=== PATIENT | female | born 1975 | race Two or more races ===

== ENCOUNTER 2017-11-05 17:54 | Emergency (ER) | payer SELFPAY ==
--- NOTE | 2017-11-05 21:08 | ED Physician Chart ---
ED Chief Complaint/HPI - Patient Information Date Seen:: 11/05/17 Time Seen:: 20:45 Chief Complaint:: right elbow and right forearm pain History of Present Illness:: At 1700 patient fell down 3 steps. No loss of consciousness. No neck pain. She complains of generalized myalgia and special pain right elbow and right forearm. Patient is right-hand dominant Allergies:: Allergies Allergy/AdvReac Type Severity Reaction Status Date / Time No Known Allergies Allergy Verified 11/05/17 18:06 Vitals:: Vital Signs - 8 hr 11/05/17 18:06 Temp 97.9 F HR 88 RR 19 BP 151/77 O2 Sat % 98 Historian:: Patient Review:: Nurse's Note Reviewed ED Review of Systems - Review of Systems General/Constitutional: No fever, No chills Skin: Skin lesions Head: No headache ENT: No earache Neck: No neck pain Cardio Vascular: No chest pain, No palpitations Pulmonary: No SOB GI: No nausea, No vomiting, No diarrhea G/U: No dysuria Musculoskeletal: No bone or joint pain Endocrine: No polyuria, No polydipsia Psychiatric: No prior psych history Hematopoietic: No bruising Allergic/Immuno: No urticaria Neurological: No syncope, No focal symptoms ED Past Medical History - Past Medical History Past Medical History: No significant medical hx Family History: Diabetes Melitus, HTN Social History: Non Smoker, No Alcohol Surgical History: None Psychiatricy History: None Medication: None ED Physical Exam - Physical Examination General/Constitutional: Well-developed, well-nourished, Alert, No distress Head: Atraumatic Eyes: Lids, conjuctiva normal, PERRL Other Skin comments:: Superficial abrasion posterior right elbow which I cleansed ENMT: External ears, nose nl, TM canals nl, Nasal exam nl, Lips, teeth, gums nl Other Neck comments:: Range of motion of the neck: 90 forward flexion 90 extension; 80 rotation; 15 right and 25 left lateral flexion. Respiratory: Nl effort/Exclusion, Clear to Auscultation Cardio Vascular: RRR, No murmur, gallop, rubs, NL S1 S2 GI: No tenderness/rebounding/guarding, No organomegaly, No hernia, Normal BS's, Nondistended, No mass/bruits : No CVA tenderness Extremities: Normal digits & nails Other Extremities comments:: Right elbow: 3 cm superficial abrasion over the posterior aspect (cleansed); tenderness over her radial head Neuro/Psych: No focal deficits Misc: Normal back ED Labs/Radiology/EKG Results - Lab Results Results: Laboratory Tests 11/05/17 11/05/17 18:15 18:32 Urine Test NEGATIVE POC Ur Test Negative Comments:: X-ray right elbow negative for fracture ED Septic Shock - . Is Septic Shock (SBP<90, OR Lactate>4 mmol\L) present?: No - <6hrs of presentation: Vital Signs: Vital Signs - 8 hr 11/05/17 18:06 Temp 97.9 F HR 88 RR 19 BP 151/77 O2 Sat % 98 ED Reassessment (Disposition) - Reassessment Reassessment Condition:: Unchanged - Diagnosis Diagnosis:: Contusion right elbow - Aftercare/Follow up Instructions Aftercare/Follow-Up Instructions:: Refer to Discharge Instructions - Patient Disposition Discharge/Transfer:: Home Condition at Disposition:: Stable, Unchanged
[2017-11-05] MEDS ORDERED: Acetaminophen 500 MG TAB ONE (21:46)
--- NOTE | 2017-11-06 09:31 | Diagnostic Imaging Report ---
Right elbow (3 views) HISTORY: Pain, trauma The exam demonstrates evidence of a joint effusion with elevation of the anterior fat pad of the distal humerus. No discrete fracture line is seen, the finding is suggestive of an underlying occult fracture most likely involving the radial head. Clinical correlation and a follow-up radiograph in 5 days recommended. IMPRESSION: 1. Evidence of a joint effusion. Though no discrete fracture line is seen, the findings suggest a possible underlying occult fracture most likely involving the radial head. Clinical correlation and a follow-up radiograph in 5 days recommended.
== END 2017-11-05 22:07 | disposition home or self-care (01) ==
LOC: ER 17:54
DX: S50.01XA Contusion of right elbow, initial encounter (principal); W10.8XXA Fall (on) (from) other stairs and steps, initial encounter; Y93.89 Activity, other specified; Y92.89 Other specified places as the place of occurrence of the external cause; Y99.8 Other external cause status
CPT/HCPCS: 73070-TC-RT; 81025-TC; Z7610